=== PATIENT | female | born 1995 | race Caucasian/White ===

== ENCOUNTER 2017-06-01 16:31 | Emergency (ER) | payer MEDICAID ==
[~2017-06-01] VITALS: Ht 152.4 cm; Wt 68.9 kg
[~2017-06-01 16:31] MED LIST: IBUP-1222 PO; ONDA4TAB13 SL; OXYC-302 PO; PREN1TAB62 PO; SENN-52 PO
[2017-06-01] MEDS ORDERED: SODIUM CHLORIDE 0.9% 1,000ML IVBOLUS ONE (17:00)
[2017-06-01] MEDS ORDERED: ONDANSETRON 2MG/ML, 2ML IVPush ONE (17:00)
[2017-06-01] MEDS ORDERED: SODIUM CHLORIDE FLUSH 10ML SYR IVF ONE (17:00)
[2017-06-01 17:17] LABS: HEMATOCRIT 39.8 % (34.6-47.8); HEMOGLOBIN 13.2 g/dL (11.7-16.4)
[2017-06-01 17:23] LABS: BLOOD UREA NITROGEN 5 mg/dL (7-18)
[2017-06-01 20:36] VITALS: BP 106/65
== END 2017-06-01 20:39 | disposition home or self-care (01) ==
LOC: ED 20:33
DX: O99.281 Endocrine, nutritional and metabolic diseases complicating pregnancy, first trimester (principal); E86.0 Dehydration; Z3A.01 Less than 8 weeks gestation of pregnancy
CPT/HCPCS: 36415; 76801; 80048; 82040; 84702; 85025; 96361; 96374; 99285; J2405; J7030

== ENCOUNTER 2017-06-10 19:28 | Emergency (ER) | payer MEDICAID ==
[~2017-06-10] VITALS: Ht 152.4 cm; Wt 67.2 kg
[2017-06-10 20:25] LABS: BASOPHILS # (AUTO) 0.01 x10^3/uL (0-0.1); BASOPHILS % (AUTO) 0 % (0-1); EOSINOPHILS # (AUTO) 0.02 x10^3/uL (0-0.4); EOSINOPHILS % (AUTO) 0 % (1-7); LYMPHOCYTES # (AUTO) 0.66 x10^3/uL (1-3.4); LYMPHOCYTES % (AUTO) 7 % (22-44); MD NO; MEAN CORPUSCULAR HGB CONC 33.2 g/dL (32.4-35.8); MEAN CORPUSCULAR VOLUME 87.4 fL (80-100); MEAN PLATELET VOLUME 8.1 fL (7.4-10.4); MONOCYTES # (AUTO) 0.36 x10^3/uL (0.2-0.8); MONOCYTES % (AUTO) 4 % (2-9); NEUTROPHILS # (AUTO) 8.86 x10^3/uL (1.8-6.8); NEUTROPHILS % (AUTO) 89 % (42-75); PLATELET COUNT 278 x10^3/uL (130-400); RED BLOOD COUNT 4.46 x10^6/uL (3.82-5.3); RED CELL DISTRIBUTION WIDTH 13.4 % (9.6-15.2)
[2017-06-10] MEDS ORDERED: ONDANSETRON 2MG/ML, 2ML IVPush ONE (20:30)
[2017-06-10] MEDS ORDERED: SODIUM CHLORIDE 0.9% 1,000ML IVBOLUS ONE (20:30)
[2017-06-10] MEDS ORDERED: SODIUM CHLORIDE FLUSH 10ML SYR IVF ONE (20:30)
[2017-06-10 20:38] LABS: ALBUMIN 3.8 g/dL (3.4-5.0); ANION GAP 9 mmol/L (5-15); CALCIUM 9.1 mg/dL (8.5-10.1); CHLORIDE 107 mmol/L (98-107); CREATININE 0.62 mg/dL (0.55-1.02)
[2017-06-10] MEDS ORDERED: ONDANSETRON 2MG/ML, 2ML ONE (20:54)
[2017-06-10 21:05] LABS: CULTURE INDICATED? YES; MICROSCOPIC INDICATED
[2017-06-10 21:44] VITALS: BP 124/68
== END 2017-06-10 21:52 | disposition home or self-care (01) ==
LOC: ED 21:37
DX: O23.11 Infections of bladder in pregnancy, first trimester (principal); Z3A.01 Less than 8 weeks gestation of pregnancy
CPT/HCPCS: 36415; 76801; 80048; 81001; 82040; 84702; 85025; 87086; 96361; 96374; 99285; J2405; J7030

== ENCOUNTER 2017-09-01 21:38 | Outpatient (CLI) | payer MEDICAID ==
[2017-09-01 22:01] LABS: MICROSCOPIC INDICATED
== END 2017-09-01 22:45 | disposition home or self-care (01) ==
LOC: LDOP 21:38
PROVIDERS: ATTEND Obstetrics & Gynecology
DX: O32.1XX0 Maternal care for breech presentation, not applicable or unspecified (principal); Z3A.00 Weeks of gestation of pregnancy not specified
CPT/HCPCS: 59025; 76817; 81001; 99211; G0463

== ENCOUNTER 2017-11-06 22:50 | Outpatient (CLI) | payer MEDICAID ==
[~2017-11-06] VITALS: Ht 152.4 cm; Wt 69.5 kg
[2017-11-06 23:00] VITALS: BP 121/60
[2017-11-07 00:56] LABS: CLUE CELLS NONE SEEN (NONE SEEN); WET PREP WBCS FEW (FEW)
== END 2017-11-07 00:35 | disposition home or self-care (01) ==
LOC: LDOP 22:50
PROVIDERS: ATTEND Obstetrics & Gynecology
DX: O36.8130 Decreased fetal movements, third trimester, not applicable or unspecified (principal); Z3A.28 28 weeks gestation of pregnancy
CPT/HCPCS: 59025; 87210; 87808; 89060; 99211; G0463; Q0114

== ENCOUNTER 2017-11-15 20:10 | Outpatient (CLI) | payer MEDICAID ==
[~2017-11-15] VITALS: Ht 152.4 cm; Wt 69.1 kg
[2017-11-15 20:34] VITALS: BP 113/59
== END 2017-11-15 22:35 | disposition home or self-care (01) ==
LOC: LDOP 20:10
PROVIDERS: ATTEND Obstetrics & Gynecology
DX: O42.913 Preterm premature rupture of membranes, unspecified as to length of time between rupture and onset of labor, third trimester (principal); Z3A.30 30 weeks gestation of pregnancy
CPT/HCPCS: 59025; 76815; 84112; 89060; 99211; G0463; Q0114

== ENCOUNTER 2017-12-07 13:46 | Outpatient (CLI) | payer MEDICAID ==
[~2017-12-07] VITALS: Ht 152.4 cm; Wt 68.2 kg
[2017-12-07 14:00] VITALS: BP 103/59
== END 2017-12-07 18:14 | disposition home or self-care (01) ==
LOC: LDOP 13:46
PROVIDERS: ATTEND Obstetrics & Gynecology
DX: O26.893 Other specified pregnancy related conditions, third trimester (principal); W19.XXXA Unspecified fall, initial encounter; Z3A.33 33 weeks gestation of pregnancy
CPT/HCPCS: 36415; 59025; 76819; 85460; 99211; G0463

== ENCOUNTER 2017-12-22 18:56 | Outpatient (CLI) | payer MEDICAID ==
[~2017-12-22] VITALS: Ht 152.4 cm; Wt 72.0 kg
[2017-12-22 19:11] VITALS: BP 116/76
[2017-12-22 19:37] LABS: MICROSCOPIC INDICATED
== END 2017-12-22 20:19 | disposition home or self-care (01) ==
LOC: LDOP 18:56
PROVIDERS: ATTEND Obstetrics & Gynecology
DX: O26.893 Other specified pregnancy related conditions, third trimester (principal); Z3A.36 36 weeks gestation of pregnancy
CPT/HCPCS: 59025; 81001; 87086; 99211; G0463

== ENCOUNTER 2018-01-11 23:20 | Inpatient (IN) | payer MEDICAID ==
[~2018-01-11] VITALS: Ht 152.4 cm; Wt 70.5 kg
[2018-01-11 23:20] VITALS: BP 116/70
[2018-01-12] MEDS ORDERED: OXYTOCIN 30U/ 0.9% NaCL 500ML 500 ML IV ONE (00:09)
[2018-01-12] MEDS: D5%-LACTATED RINGERS 1,000 ML IV SCH ×2 (00:09→08:09)
[2018-01-12] MEDS ORDERED: FENTANYL PF 100 MCG/2ML ONE (00:13)
[2018-01-12] MEDS: LACTATED RINGERS 1,000 ML IV SCH ×2 (00:15→08:09)
[2018-01-12] MEDS ORDERED: OXYTOCIN 30U/ 0.9% NaCL 500ML 500 ML ONE ×2 (00:18→04:19)
[2018-01-12] MEDS ORDERED: LIDOCAINE/PF 1%, 30ML ONE (00:18)
[2018-01-12] MEDS ORDERED: NEWBORN KIT ONE (00:18)
[2018-01-12] MEDS ORDERED: MISOPROSTOL 200 MCG TABLET ONE (00:18)
[2018-01-12] MEDS ORDERED: LACTATED RINGERS 1,000 ML IV SCH ×2 (00:22→01:48)
[2018-01-12] MEDS ORDERED: FENTANYL/BUPIV./NS/PF 250 ML EPIDCONT SCH ×2 (00:22→01:48)
[2018-01-12] MEDS ORDERED: FENTANYL PF 100 MCG/2ML IVPush PRN (00:30)
[2018-01-12] MEDS ORDERED: FENTANYL PF 100 MCG/2ML IV PRN (00:30)
[2018-01-12] MEDS ORDERED: LACTATED RINGERS 1,000 ML IVBOLUS PRN ×2 (00:30→02:00)
[2018-01-12] MEDS ORDERED: ONDANSETRON 2MG/ML, 2ML IVPush PRN (00:30)
[2018-01-12 00:58] LABS: BASOPHILS # (AUTO) 0.02 x10^3/uL (0-0.1); BASOPHILS % (AUTO) 0 % (0-1); EOSINOPHILS # (AUTO) 0.03 x10^3/uL (0-0.4); EOSINOPHILS % (AUTO) 0 % (1-7); LYMPHOCYTES # (AUTO) 1.18 x10^3/uL (1-3.4); LYMPHOCYTES % (AUTO) 14 % (22-44); MD NO; MEAN CORPUSCULAR HEMOGLOBIN 26.6 pg (27.0-34.8); MEAN CORPUSCULAR HGB CONC 33.3 g/dL (32.4-35.8); MEAN CORPUSCULAR VOLUME 79.9 fL (80-100); MEAN PLATELET VOLUME 7.8 fL (7.4-10.4); MONOCYTES # (AUTO) 0.59 x10^3/uL (0.2-0.8); MONOCYTES % (AUTO) 7 % (2-9); NEUTROPHILS # (AUTO) 6.87 x10^3/uL (1.8-6.8); NEUTROPHILS % (AUTO) 79 % (42-75); PLATELET COUNT 284 x10^3/uL (130-400); RED BLOOD COUNT 3.22 x10^6/uL (3.82-5.3)
[2018-01-12] MEDS ORDERED: BUPIVACAINE 0.25% ONE (01:13)
[2018-01-12] MEDS ORDERED: ONDANSETRON 2MG/ML, 2ML ONE (01:41)
[2018-01-12] MEDS ORDERED: NALOXONE 0.4 MG/ML, 1ML IVPush PRN (02:00)
[2018-01-12] MEDS ORDERED: EPHEDRINE 50 MG/ML, 1ML IVPush PRN (02:00)
[2018-01-12] MEDS ORDERED: CEFAZOLIN PMX 1GM/50ML 100 ML ONE (04:13)
[2018-01-12] MEDS: OXYTOCIN 30U/ 0.9% NaCL 500ML 500 ML IV SCH ×2 (04:17→14:17)
[2018-01-12] MEDS ORDERED: OXYcodone/APAP 5/325MG TABLET PO PRN (04:30)
[2018-01-12] MEDS ORDERED: ONDANSETRON 2MG/ML, 2ML IV PRN (04:30)
[2018-01-12] MEDS ORDERED: CALCIUM CARBONATE 500 MG TAB.CHEW PO PRN (04:30)
[2018-01-12] MEDS ORDERED: MISOPROSTOL 200 MCG TABLET PR PRN (04:30)
[2018-01-12] MEDS ORDERED: CEFAZOLIN PMX 1GM/50ML 50 ML IV ONE ×2 (04:30)
[2018-01-12] MEDS ORDERED: IBUPROFEN 600 MG TABLET ONE (04:43)
[2018-01-12] MEDS ORDERED: OXYcodone/APAP 5/325MG TABLET ONE (04:43)
[2018-01-12] MEDS: IBUPROFEN 600 MG TABLET PO PRN ×2 (04:45→13:41)
[2018-01-12 07:00] VITALS: BP 96/59
[2018-01-12] MEDS: DOCUSATE 100 MG CAPSULE PO PRN (08:51)
[2018-01-12] MEDS: PRENATAL VIT/IRON/FA 1 EACH TABLET PO SCH (08:51)
[2018-01-12 12:16] LABS: MEAN CORPUSCULAR HEMOGLOBIN 26.5 pg (27.0-34.8); MEAN CORPUSCULAR HGB CONC 33.3 g/dL (32.4-35.8); MEAN CORPUSCULAR VOLUME 79.5 fL (80-100); MEAN PLATELET VOLUME 7.6 fL (7.4-10.4); PLATELET COUNT 265 x10^3/uL (130-400); RED BLOOD COUNT 3.57 x10^6/uL (3.82-5.3)
[2018-01-12 12:58] LABS: BASOPHILS # (AUTO) 0.03 x10^3/uL (0-0.1); BASOPHILS % (AUTO) 0 % (0-1); EOSINOPHILS # (AUTO) 0.02 x10^3/uL (0-0.4); EOSINOPHILS % (AUTO) 0 % (1-7); LYMPHOCYTES # (AUTO) 0.81 x10^3/uL (1-3.4); LYMPHOCYTES % (AUTO) 7 % (22-44); MD SCAN; MONOCYTES # (AUTO) 0.65 x10^3/uL (0.2-0.8); MONOCYTES % (AUTO) 6 % (2-9); NEUTROPHILS # (AUTO) 10.19 x10^3/uL (1.8-6.8); NEUTROPHILS % (AUTO) 87 % (42-75)
[2018-01-12 15:49] VITALS: BP 107/68
[2018-01-12 20:35] VITALS: BP 104/73
[2018-01-13] VITALS: BP 101/66
[2018-01-13 04:00] VITALS: BP 95/58
[2018-01-13] MEDS: IBUPROFEN 600 MG TABLET PO PRN (05:10)
[2018-01-13 07:30] VITALS: BP 103/58
[2018-01-13] MEDS: DOCUSATE 100 MG CAPSULE PO PRN (07:43)
[2018-01-13] MEDS: PRENATAL VIT/IRON/FA 1 EACH TABLET PO SCH (07:43)
[2018-01-13] MEDS ORDERED: IBUP-1222 PO (11:00)
[2018-01-13] MEDS ORDERED: SENN-52 PO (11:01)
[2018-01-13] MEDS ORDERED: HYDR-3240 PO (11:01)
== END 2018-01-13 11:37 | disposition home or self-care (01) | DRG 767 ==
LOC: LDOP 23:20 → LDIP 01-12 00:07 → 2NW 01-12 05:45
PROVIDERS: ADMIT Obstetrics & Gynecology; ATTEND Obstetrics & Gynecology
PROC: 10E0XZZ Delivery of Products of Conception, External Approach (ICD-10-PCS; principal; 2018-01-12)
PROC: 10D17Z9 Manual Extraction of Products of Conception, Retained, Via Natural or Artificial Opening (ICD-10-PCS; 2018-01-12)
PROC: 10907ZC Drainage of Amniotic Fluid, Therapeutic from Products of Conception, Via Natural or Artificial Opening (ICD-10-PCS; 2018-01-12)
PROC: 3E0R3BZ Introduction of Anesthetic Agent into Spinal Canal, Percutaneous Approach (ICD-10-PCS; 2018-01-12)
PROC: 00HU33Z Insertion of Infusion Device into Spinal Canal, Percutaneous Approach (ICD-10-PCS; 2018-01-12)
DX: O69.81X0 Labor and delivery complicated by cord around neck, without compression, not applicable or unspecified (principal); O73.0 Retained placenta without hemorrhage; Z37.0 Single live birth; Z3A.39 39 weeks gestation of pregnancy
CPT/HCPCS: 36415; 85025; 86850; 86900; J0690; J2405; J3010; J3490; J2590; J7120